=== PATIENT | male | born 1930 | race Hispanic/Latino ===

== ENCOUNTER 2016-08-18 14:54 | Inpatient (IN) | payer MEDICARE, OTHER ==
[2016-08-18] MEDS ORDERED: CARDIZEM ONE (15:14)
[2016-08-18] MEDS ORDERED: CARDIZEM/D5W 100MG/100ML 100 MG/100 ML BAG IV ONE (15:15)
[2016-08-18] MEDS ORDERED: CARDIZEM IV ONE (15:36)
[2016-08-18] MEDS ORDERED: CARDIZEM/D5W 100MG/100ML 100 MG/100 ML BAG IV SCH (16:00)
--- NOTE | 2016-08-18 16:39 | Emergency Department Report ---
HPI - General Chief Complaint: Chest Pain Time Seen by Provider: 08/18/16 16:14 - HPI HPI: This is an 86-year-old male who presents to the emergency department by EMS with some generalized and nonspecific complaints. EMS has listed as a chief complaint of impending doom. The patient complains of a panicking sensation and some palpitations. He denies any significant chest discomfort. The EKGs that were obtained by EMS in route showed A. fib with RVR and some signs of sinus tachycardia with PVCs. The patient was started on a Cardizem drip and arrives getting this medication. Patient's primary care doctor is a Dr. Hurst, he does not have a medical practice administrator. 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 He denies any history of AR, CVA, PE/DVT. The patient also presents as a DO NOT RESUSCITATE. ED Past Medical Hx - Past Medical History Hx Hypertension: Yes Additional medical history: Anxiety - Surgical History Additional Surgical History: Left leg amputee - Social History Smoking Status: Unknown if ever smoked Substance Use Type: None - Medications Home Medications: Home Medications Medication Instructions Recorded Confirmed Last Taken Type Hydrochlorothiazide 12.5 mg PO DAILY 08/18/16 08/18/16 Unknown History ED Review of Systems ROS: Stated complaint: RAPID HEART RATE Other details as noted in HPI Comment: All other systems reviewed and negative Constitutional: denies: chills, fever Eyes: denies: eye pain, eye discharge, vision change ENT: denies: ear pain, throat pain Respiratory: denies: cough, shortness of breath, wheezing Cardiovascular: palpitations. denies: syncope Gastrointestinal: denies: abdominal pain, nausea, diarrhea Genitourinary: denies: urgency, dysuria Musculoskeletal: denies: back pain, joint swelling, arthralgia Skin: denies: rash, lesions Neurological: denies: headache, weakness, paresthesias Psychiatric: anxiety Physical Exam - Physical Exam Vital Signs: Vital Signs 08/18/16 08/18/16 15:30 15:36 Temperature 97.6 F Pulse Rate 94 H 103 H Respiratory 15 Rate Blood Pressure 148/53 O2 Sat by Pulse 99 Oximetry Physical Exam: GENERAL: The patient is well-developed well-nourished. HEENT: Normocephalic. Atraumatic. Extraocular motions are intact. Patient has moist mucous membranes. Pupils equal reactive to light bilaterally. NECK: Supple. Trachea is midline. CHEST/LUNGS: Clear to auscultation. There is no respiratory distress noted. HEART/CARDIOVASCULAR: Heart rate appears regular with a controlled rate. ABDOMEN: Abdomen is soft, nontender. Patient has normal bowel sounds. There is no abdominal distention. SKIN: Skin is warm and dry. NEURO: The patient is awake, alert. The patient is cooperative. The patient has no focal neurologic deficits. The patient has normal speech. Pronator drift. MUSCULOSKELETAL: There is no tenderness or deformity. Chronic left below-knee amputation. There is no evidence of acute injury. ED Course Vital Signs 08/18/16 08/18/16 15:30 15:36 Temperature 97.6 F Pulse Rate 94 H 103 H Respiratory 15 Rate Blood Pressure 148/53 O2 Sat by Pulse 99 Oximetry ED Medical Decision Making - Lab Data Result diagrams: 08/18/16 16:51 08/18/16 16:51 - EKG Data -: EKG Interpreted by Me EKG shows normal: sinus rhythm (with PVCs), axis (right axis deviation), intervals, QRS complexes (nonspecific intraventricular block), ST-T waves Rate: normal - EKG Data When compared to previous EKG there are: previous EKG unavailable Interpretation: other (sinus rhythm with PVCs, rightward axis, rate of 82 bpm, nonspecific interventricular block) - Radiology Data Radiology results: report reviewed, image reviewed interpreted by me: Chest x-ray did not show any acute process. Heart is normal shape and size. No effusions. No pneumothorax. No signs of pneumonia seen. CT angiography of the chest shows consolidation with obstructing endobronchial material or mass within the medial right middle lobe. Nodular density seen within the distal trachea to the right of the midline just above the bifurcation. There is concern for underlying malignancy. Bronchoscopy may be indicated. No evidence of pulmonary embolism. - Medical Decision Making 86-year-old male presents with some sense of impending doom, panic, some palpitations. Patient's labs are mostly unremarkable other than a elevated equivocal d-dimer. For this reason a CT Angio. The chest was done that shows a consolidation in the right middle lobe and a nodular density just above the tracheal bifurcation that altogether appears concerning for tumor and/ or malignancy. Originally patient had EKG through EMS that appear consistent with atrial ablation. Once he was on the Cardizem drip it appeared to go to a sinus tachycardia with PVCs. For these reasons patient will be admitted to the hospital for further evaluation and treatment. He has been accepted for admission by the hospitalist, Dr Moore. - Differential Diagnosis dysrhythmia, AR, malignancy, PE, anxiety Critical Care Time: No Critical care attestation.: If time is entered above; I have spent that time in minutes in the direct care of this critically ill patient, excluding procedure time. ED Disposition Clinical Impression: Mass of lung, Tachyarrhythmia Hypertension Qualifiers: Hypertension type: essential hypertension Qualified Code(s): I10 - Essential ( primary) hypertension Chest pain Qualifiers: Chest pain type: unspecified Qualified Code(s): R07.9 - Chest pain, unspecified Disposition: OP ADMITTED IP TO THIS HOSP Is pt being admited?: Yes Does the pt Need Aspirin: Yes Condition: Stable Time of Disposition: 19:39
--- NOTE | 2016-08-18 17:10 | XRay Report ---
Portable chest: The lungs are hyperlucent and hyperinflated. No pulmonary nodule or infiltrate. The heart is normal in size. No prior study for comparison. Impression: Chronic lung disease. No acute findings suspected.
[2016-08-18 17:15] LABS: Basophils % (Auto) 1.1 % (0.0-1.8); Eosinophils % (Auto) 0.6 % (0.0-4.3); Hematocrit 45.1 % (35.5-45.6); Hemoglobin 14.5 gm/dl (11.8-15.2); Mean Corpuscular HGB Conc 32 % (32-34); Mean Corpuscular Hemoglobin 28 pg (28-32); Mean Corpuscular Volume 87 fl (84-94); Platelet Count 338 K/mm3 (140-440); Red Blood Count 5.22 M/mm3 (3.65-5.03); Red Cell Distribution Width 13.2 % (13.2-15.2); White Blood Count 10.4 K/mm3 (4.5-11.0)
[2016-08-18 17:19] LABS: Bilirubin,Urine NEG (Negative); Blood,Urine NEG (Negative); Ketones,Urine NEG (Negative); Leukocyte Esterase,Urine NEG (Negative); Nitrite,Urine NEG (Negative); Protein,Urine <15 mg/dL mg/dL (Negative); Urobilinogen,Urine < 2.0 mg/dL (<2.0); WBC,Urine < 1.0 /HPF (0.0-6.0)
[2016-08-18 17:25] LABS: INR 1.04 (0.87-1.13)
[2016-08-18 17:26] LABS: Partial Thromboplastin Time 42.4 Sec. (24.2-36.6)
[2016-08-18] MEDS ORDERED: NACL ONE (17:29)
[2016-08-18 17:35] LABS: Alanine Aminotransferase 15 units/L (7-56); Albumin 3.6 g/dL (3.9-5); Albumin/Globulin Ratio 0.9 %; Alkaline Phosphatase 71 units/L (35-129); Anion Gap 21 mmol/L; BUN/Creatinine Ratio 13.33; Bilirubin,Total 0.4 mg/dL (0.1-1.2); Blood Urea Nitrogen 16 mg/dL (9-20); Calcium 9.1 mg/dL (8.4-10.2); Carbon Dioxide 21 mmol/L (22-30); Chloride 98.7 mmol/L (98-107); Creatine Kinase 208 units/L (55-170); Glucose 111 mg/dL (75-100); Potassium 4.3 mmol/L (3.6-5.0); Sodium 136 mmol/L (137-145); Total Protein 7.4 g/dL (6.3-8.2)
--- NOTE | 2016-08-18 18:35 | Admit Criteria Form ---
Admission Criteria Documentation: PULMONARY DISEASE GRG Clinical Indications for Admission to Inpatient Care ( Place 'X' for any and all applicable criteria): Hospital admission is needed for appropriate care of the patient because of ANY ONE of the following(1): [ ]I. Impending or actual respiratory arrest ( Use Respiratory Failure Criteria for severe respiratory disease and long-term mechanical ventilation patients) (4) [ ]II. Severe airflow or ventilation abnormalities (not responsive to emergency and observation care treatment as appropriate) as indicated by ANY ONE of the following(5)(6)(7)(8) : [ ]a) PCO2 > 42 mm Hg (5.6 kPa) and pH < 7.35 (new) [ ]b) Documented PCO2 increase > 5 mm Hg (0.7 kPa) from disease baseline [ ]c) Airflow measurements[A] < 60% of previous best or predicted ( e.g., PEF <300 L/minute) despite intensive emergent treatment[B] [ ]d) Required respiratory treatments that are performable only in acute inpatient setting [ ]III. Severe respiratory findings (not responsive to emergency and observation care treatment as appropriate) including ANY ONE of the following(5)(8)(9): [ ]a) Respiratory distress as indicated by ALL of the following(5)(10): [ ]i) Patient with ANY ONE of the following: [ ]1) Dyspnea (difficulty breathing) [ ]2) Abnormal breathing pattern (eg, chest retractions) [ ]3) Tachypnea [ ]4) Other evidence of difficulty breathing [ ]ii) Evidence of respiratory compromise indicated by ANY ONE of the following: [ ]1) Hypoxemia [ ]2) Altered mental status [ ]3) Other evidence of respiratory compromise (eg, pulmonary edema on chest x-ray) [ ]b) Stridor [ ]c) Gross hemoptysis(11) [ ]d) Acute cyanosis [ ]IV. High-risk pulmonary infection as indicated by ANY ONE of the following( 19)(20)(21)(22): [ ]a) Temperature less than 95 degrees F(35 degrees C) or greater than 103.1 degrees F(39.5 degrees C) [ ]b) Hemodynamic instability that remains after emergency or observation level care (as appropriate) [ ]c) Immunocompromised patient (eg, AIDS, post transplant, neutropenic) [ ]d) History of severe COPD [ ]e) History of severely symptomatic congestive heart failure [ ]f) Other high-risk comorbidity (eg, poorly controlled diabetes, cirrhosis, chronic renal insufficiency) [ ]g) Hypoxemia (new) [ ]h) Outpatient, observation, or recovery facility therapy has failed, is not appropriate, or is not feasible [ ]V. Severe atelectasis or lung collapse(15)(16) [ ]. Tuberculosis requiring inpatient treatment as indicated by ANY ONE of the following(17)(18): [ ]a) New positive acid-fast bacilli sputum smear [ ]b) Positive acid-fast bacilli smear (under current treatment), with ANY ONE of the following: [ ]i) Unexposed household contacts [ ]ii) Infants or immunosuppressed household contacts [ ]iii) Patient unable or unwilling to avoid exposing others [ ]iv) Severe immunocompromised patient (eg, AIDS, post transplant, neutropenic) [ ]VII. Empyema or lung abscess(13)(14) [ ]VIII. Severe pulmonary arterial hypertension or pulmonary vascular disease requiring inpatient care indicated by ANY ONE of the following(24)(25): [ ]a) Initiation or change of vasodilators (IV, subcutaneous, or inhaled) or other vasoactive medications needed [ ]b) IV anticoagulation needed (eg, immediate anticoagulation necessary, alternatives not appropriate) [ ]c) Arterial or pulmonary artery catheter monitoring needed due to infusion or other treatment [ ]IX. Chronic lung disease with severe deterioration (not responsive to emergency and observation care treatment as appropriate) as indicated by ANY ONE of the following (6)(12): [ ]a) SaO2 5% below baseline in patient with chronic hypoxemia [ ]b) New requirement for supplemental oxygen to keep SaO2 at baseline or acceptable level [ ]c) Required supplemental oxygen performable only in acute inpatient setting [ ]d) Severe airflow or ventilation abnormalities [ ]e) Rapid rate of exacerbation onset [ ]f) Previously mobile patient unable to walk between rooms [ ]g) Inability to eat or sleep due to dyspnea [ ]h) Altered mental status [ ]X. Cystic fibrosis with severe deterioration as indicated by ANY ONE of the following(26)(27): [ ]a) Severe exacerbation that does not respond to intensified home therapy [ ]b) Pneumonia [ ]c) Hemoptysis [ ]d) Atelectasis [ ]e) Pneumothorax [ ]f) Respiratory failure [ ]g) Severe exacerbation with patient unable to perform prescribed treatments at home [ ]XI. Severe right heart failure as indicated by ANY ONE of the following(24) (25): [ ]a) Increasing organ failure (eg, liver congestion with significant and worsening or new elevation of transaminases) [ ]b) Anasarca [ ]c) Angina that requires inpatient care (eg, not treatable in emergency or observation level of care) [ ]d) Respiratory distress [ ]e) Syncope [ ]f) SBP < 90 mm Hg (new) [ ]XII. Injury requiring inpatient care (medical) as indicated by ANY ONE of the following(28): [ ]a) Significant inhalation injury (eg, smoke inhalation, other toxic inhalation) (29)(30)(31) [ ]b) Airway obstruction that remains or is unstable after emergency or observation level care(32) [ ]c) Severe pain requiring acute inpatient management [ ]d) Lung contusion [ ]e) Bronchial tree injury [ ]f) Air or fat emboli(33) [ ]g) Other injury not treatable in emergency or observation level care (eg, hemothorax) (34) [ ]XIII. Pulmonary hemorrhage or significant hemoptysis(11)(35)(36) [ ]XIV. Inpatient palliative care needed[C](37)(38)(39)(40) [ ]XV. Complications of lung transplant (eg, rejection, failure, respiratory infection) (23) [X ]XVI. Pulmonary Disease and ANY ONE of the following: [X ]a) General Admission Criteria [ ]b) Pediatric General Admission Criteria The original [facility] content created by [facility] has been revised. The portions of the content which have been revised are identified through the use of italic text or in bold, and [facility] has neither reviewed nor approved the modified material. All other unmodified content is copyright [facility]. Please see references footnoted in the original [facility] edition 2016
--- NOTE | 2016-08-18 18:47 | Cat Scan Report ---
FINAL REPORT EXAM: CT ANGIO CHEST HISTORY: Elevated dimer, Palpitations TECHNIQUE: CT chest CT angiogram with reconstructions PRIORS: None. FINDINGS: There is no evidence of filling defect within the central pulmonary vasculature to suggest the presence of acute pulmonary embolus. No evidence of mediastinal pathologic lymph node enlargement Heart and great vessels are unremarkable. The aorta is normal in caliber. There is focal consolidation within the medial aspect of the right middle lobe. There is dense material within the right middle lobe bronchus Within the distal trachea just above the bifurcation there is a 1.2 centimeter intermediate density focus along the tracheal wall just proximal to the bifurcation Visualized portion of the upper abdomen demonstrates no acute change. IMPRESSION: Consolidation with obstructing endobronchial material or mass within the medial right middle lobe. Nodular density seen within the distal trachea to the right of midline just above the bifurcation. There is concern for underlying malignancy. Bronchoscopy may reflect be required for further evaluation. No CT evidence for acute pulmonary embolus
[2016-08-18] MEDS ORDERED: BABY ASPIRIN PO ONE (19:40)
--- NOTE | 2016-08-18 21:43 | History and Physical Report ---
History of Present Illness Date of examination: 08/18/16 Date of admission: 08/18/16 19:40 Chief complaint: High blood pressure History of present illness: 86-year-old male with past medical history significant for dementia, hypertension presented to the emergency department complaining of elevated blood pressure systolic in the 160. Patient denied any chest pain, shortness of breath, palpitations. In the emergency department EKG was done and and showed A. fib with RVR. The patient was started on Cardizem drip and rhythm was changed to sinus. CT was done and showed right middle lobe mass. Patient was admitted to telemetry for further workup. REVIEW OF SYSTEMS: GENERAL: no weight change, no fatigue, no fever HEAD: no head ache EYES: no blurry vision, no acute visual loss EARS: no hearing loss, no discharge, no earache NOSE: no stuffiness, no sneezing, no discharge MOUTH, THROAT AND NECK: no bleeding gums, no sore throat, no swollen neck CARDIAC: no palpitations, no dyspnea on exertion, no orthopnea, no PND, no edema , no chest pain RESPIRATORY: no shortness of breath, no wheeze, no cough, no sputum, no hemoptysis, no asthma GI: no decreased appetite, no nausea, no vomiting, no dysphagia, no diarrhea, no constipation, no abdominal pain URINARY: no change in frequency, no urgency, no polyuria, no hematuria, no incontinence MUSCULOSKELETAL: no muscle weakness, no pain, no joint stiffness NEUROLOGIC: no loss of sensation/numbness, no tingling, no tremors, no weakness/ paralysis HEMATOLOGIC: no anemia, no easy bruising SKIN: no rashes ENDOCRINE: no heat/cold intolerance, no polyuria, no polydipsia, no thyroid problems, no diabetes PSYCHIATRIC: no anxiety, no depression, no suicidal ideations Past History Past Medical History: hypertension, other (dementia) Past Surgical History: Other (right BKA) Social history: full code. denies: smoking, alcohol abuse, prescription drug abuse, IV drug use Family history: no significant family history Medications and Allergies Allergies Allergy/AdvReac Type Severity Reaction Status Date / Time No Known Allergies Allergy Unverified 08/18/16 15:34 Home Medications Medication Instructions Recorded Confirmed Last Taken Type Hydrochlorothiazide 12.5 mg PO DAILY 08/18/16 08/18/16 Unknown History Active Meds: Active Medications Heparin Sodium (Porcine) (Heparin) 5,000 unit SUB-Q Q12HR RAMO Diltiazem HCl (Cardizem/D5w 100mg/100ml) 100 mg in 100 mls @ 5 mls/hr IV TITR RAMO; 5 MG/HR PRN Reason: Protocol Last Admin: 08/18/16 15:40 Dose: 5 mg/hr, 5 mls/hr Exam - Physical Exam Narrative exam: Not in cardiopulmonary distress. The patient appeared well nourished and normally developed. Vital signs as documented. Head exam is unremarkable. No scleral icterus . Neck is without jugular venous distension, thyromegaly, or carotid bruits. Lungs are clear to auscultation. Cardiac exam reveals regular rate and Rhythm. First and second heart sounds normal. No murmurs, rubs or gallops. Abdominal exam reveals normal bowel sounds, no masses, no organomegaly and no aortic enlargement. Extremities right BKA . 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 No focal weakness. - Constitutional Vitals: Temp Pulse Resp BP Pulse Ox 97.6 F 97 H 11 L 131/64 95 08/18/16 15:30 08/18/16 20:00 08/18/16 20:00 08/18/16 20:00 08/18/16 20:00 Results - Labs CBC & Chem 7: 08/18/16 16:51 08/18/16 16:51 Labs: Laboratory Last Values WBC 10.4 K/mm3 (4.5-11.0) 08/18/16 16:51 RBC 5.22 M/mm3 (3.65-5.03) H 08/18/16 16:51 Hgb 14.5 gm/dl (11.8-15.2) 08/18/16 16:51 Hct 45.1 % (35.5-45.6) 08/18/16 16:51 MCV 87 fl (84-94) 08/18/16 16:51 MCH 28 pg (28-32) 08/18/16 16:51 MCHC 32 % (32-34) 08/18/16 16:51 RDW 13.2 % (13.2-15.2) 08/18/16 16:51 Plt Count 338 K/mm3 (140-440) 08/18/16 16:51 Lymph % (Auto) 7.7 % (13.4-35.0) L 08/18/16 16:51 [place] % (Auto) 7.0 % (0.0-7.3) 08/18/16 16:51 Eos % (Auto) 0.6 % (0.0-4.3) 08/18/16 16:51 Baso % (Auto) 1.1 % (0.0-1.8) 08/18/16 16:51 Lymph # 0.8 K/mm3 (1.2-5.4) L 08/18/16 16:51 [place] # 0.7 K/mm3 (0.0-0.8) 08/18/16 16:51 Eos # 0.1 K/mm3 (0.0-0.4) 08/18/16 16:51 Baso # 0.1 K/mm3 (0.0-0.1) 08/18/16 16:51 Seg Neutrophils % 83.6 % (40.0-70.0) H 08/18/16 16:51 Seg Neutrophils # 8.7 K/mm3 (1.8-7.7) H 08/18/16 16:51 PT 13.5 Sec. (12.2-14.9) 08/18/16 16:51 INR 1.04 (0.87-1.13) 08/18/16 16:51 APTT 42.4 Sec. (24.2-36.6) H 08/18/16 16:51 D-Dimer 590.34 ng/mlDDU (0-234) H 08/18/16 16:51 Sodium 136 mmol/L (137-145) L 08/18/16 16:51 Potassium 4.3 mmol/L (3.6-5.0) 08/18/16 16:51 Chloride 98.7 mmol/L (98-107) 08/18/16 16:51 Carbon Dioxide 21 mmol/L (22-30) L 08/18/16 16:51 Anion Gap 21 mmol/L 08/18/16 16:51 BUN 16 mg/dL (9-20) 08/18/16 16:51 Creatinine 1.2 mg/dL (0.8-1.5) 08/18/16 16:51 Estimated GFR 57 ml/min 08/18/16 16:51 BUN/Creatinine Ratio 13.33 % 08/18/16 16:51 Glucose 111 mg/dL (75-100) H 08/18/16 16:51 Calcium 9.1 mg/dL (8.4-10.2) 08/18/16 16:51 Total Bilirubin 0.4 mg/dL (0.1-1.2) 08/18/16 16:51 AST 21 units/L (5-40) 08/18/16 16:51 ALT 15 units/L (7-56) 08/18/16 16:51 Alkaline Phosphatase 71 units/L (35-129) 08/18/16 16:51 Total Creatine Kinase 208 units/L (55-170) H 08/18/16 16:51 CK-MB (CK-2) 8.0 ng/mL (0.0-4.0) H 08/18/16 16:51 CK-MB (CK-2) Rel Index 3.8 (0-4) 08/18/16 16:51 Troponin T < 0.010 ng/mL (0.00-0.029) 08/18/16 16:51 Total Protein 7.4 g/dL (6.3-8.2) 08/18/16 16:51 Albumin 3.6 g/dL (3.9-5) L 08/18/16 16:51 Albumin/Globulin Ratio 0.9 % 08/18/16 16:51 TSH 1.450 mlU/mL (0.270-4.200) 08/18/16 16:51 Urine Color Straw (Yellow) 08/18/16 16:56 Urine Turbidity Clear (Clear) 08/18/16 16:56 Urine pH 7.0 (5.0-7.0) 08/18/16 16:56 Ur Specific [place] 1.005 (1.003-1.030) 08/18/16 16:56 Urine Protein <15 mg/dl mg/dL (Negative) 08/18/16 16:56 Urine Glucose (UA) Neg mg/dL (Negative) 08/18/16 16:56 Urine Ketones Neg mg/dL (Negative) 08/18/16 16:56 Urine Blood Neg (Negative) 08/18/16 16:56 Urine Nitrite Neg (Negative) 08/18/16 16:56 Urine Bilirubin Neg (Negative) 08/18/16 16:56 Urine Urobilinogen < 2.0 mg/dL (<2.0) 08/18/16 16:56 Ur Leukocyte Esterase Neg (Negative) 08/18/16 16:56 Urine WBC (Auto) < 1.0 /HPF (0.0-6.0) 08/18/16 16:56 Urine RBC (Auto) 1.0 /HPF (0.0-6.0) 08/18/16 16:56 - Imaging and Cardiology EKG: image reviewed (A. fib with RVR) CT scan - chest: report reviewed (right middle lobe mass) Assessment and Plan Assessment and plan: A. fib with RVR Right mid lobe mass Hypertension - Patient was on Cardizem drip - Converted to sinus rhythm - put on by mouth metoprolol - Echocardiogram - Restart his home medications - Pulmonary consult placed for evaluation of lung mass DVT prophylaxis - Lovenox Disposition - Admit to telemetry floor
[2016-08-18] MEDS: HEPARIN SUB-Q SCH (22:36)
[2016-08-18] MEDS: LOPRESSOR PO SCH (22:36)
--- NOTE | 2016-08-19 09:31 | Progress Note ---
Assessment and Plan Assessment and plan: --A. fib with rapid ventricular rate Off Cardizem drip now, closely monitor Cardiology evaluation if needed Discussed with the patient the need for chronic anticoagulation Patient refused, DO NOT RESUSCITATE status, will add aspirin --Possible right lung mass, pulmonary consultation requested Closely monitor, patient does not want any workup aggressive management will Advise follow-up with pulmonary if he wants further evaluation --Hypertension, well controlled Continue current antihypertensives and when necessary medications --Status post left BKA Supportive care --DVT prophylaxis with Lovenox --CODE STATUS; DO NOT RESUSCITATE --DC planning per case management Patient lives alone, recommend rehabilitation versus placement Patient refused and wanted to be discharged home Condition treatment plan discussed in detail with the patient History Interval history: Patient seen and evaluated in his room medical records reviewed Patient feels slightly better no new complaints Admitted with A. fib with rapid ventricular rate on Cardizem drip, which was discontinued in view of bradycardia Patient feels better denies any chest pain shortness of breath Awaiting pulmonary consult for possible lung mass Hospitalist Physical - Constitutional Vitals: Temp Pulse Resp BP Pulse Ox 97.8 F 76 18 123/59 95 08/19/16 08:24 08/19/16 08:24 08/19/16 08:24 08/19/16 08:24 08/19/16 08:24 General appearance: Present: no acute distress, well-nourished - EENT Eyes: Present: PERRL, EOM intact - Neck Neck: Present: supple, normal ROM - Respiratory Respiratory effort: normal Respiratory: bilateral: diminished, rhonchi (occasional), negative: rales, wheezing - Cardiovascular Rhythm: regular Heart Sounds: Present: S1 & S2 - Extremities Extremities: no ischemia, pulses intact, pulses symmetrical, abnormal (left below-knee amputation) - Abdominal General gastrointestinal: soft, non-tender, non-distended, normal bowel sounds - Integumentary Integumentary: Present: clear, warm - Psychiatric Psychiatric: appropriate mood/affect, cooperative - Neurologic Neurologic: CNII-XII intact, moves all extremities Results - Labs CBC & Chem 7: 08/18/16 16:51 08/18/16 16:51 Labs: Laboratory Last Values WBC 10.4 K/mm3 (4.5-11.0) 08/18/16 16:51 RBC 5.22 M/mm3 (3.65-5.03) H 08/18/16 16:51 Hgb 14.5 gm/dl (11.8-15.2) 08/18/16 16:51 Hct 45.1 % (35.5-45.6) 08/18/16 16:51 MCV 87 fl (84-94) 08/18/16 16:51 MCH 28 pg (28-32) 08/18/16 16:51 MCHC 32 % (32-34) 08/18/16 16:51 RDW 13.2 % (13.2-15.2) 08/18/16 16:51 Plt Count 338 K/mm3 (140-440) 08/18/16 16:51 Lymph % (Auto) 7.7 % (13.4-35.0) L 08/18/16 16:51 [place] % (Auto) 7.0 % (0.0-7.3) 08/18/16 16:51 Eos % (Auto) 0.6 % (0.0-4.3) 08/18/16 16:51 Baso % (Auto) 1.1 % (0.0-1.8) 08/18/16 16:51 Lymph # 0.8 K/mm3 (1.2-5.4) L 08/18/16 16:51 [place] # 0.7 K/mm3 (0.0-0.8) 08/18/16 16:51 Eos # 0.1 K/mm3 (0.0-0.4) 08/18/16 16:51 Baso # 0.1 K/mm3 (0.0-0.1) 08/18/16 16:51 Seg Neutrophils % 83.6 % (40.0-70.0) H 08/18/16 16:51 Seg Neutrophils # 8.7 K/mm3 (1.8-7.7) H 08/18/16 16:51 PT 13.5 Sec. (12.2-14.9) 08/18/16 16:51 INR 1.04 (0.87-1.13) 08/18/16 16:51 APTT 42.4 Sec. (24.2-36.6) H 08/18/16 16:51 D-Dimer 590.34 ng/mlDDU (0-234) H 08/18/16 16:51 Sodium 136 mmol/L (137-145) L 08/18/16 16:51 Potassium 4.3 mmol/L (3.6-5.0) 08/18/16 16:51 Chloride 98.7 mmol/L (98-107) 08/18/16 16:51 Carbon Dioxide 21 mmol/L (22-30) L 08/18/16 16:51 Anion Gap 21 mmol/L 08/18/16 16:51 BUN 16 mg/dL (9-20) 08/18/16 16:51 Creatinine 1.2 mg/dL (0.8-1.5) 08/18/16 16:51 Estimated GFR 57 ml/min 08/18/16 16:51 BUN/Creatinine Ratio 13.33 % 08/18/16 16:51 Glucose 111 mg/dL (75-100) H 08/18/16 16:51 Calcium 9.1 mg/dL (8.4-10.2) 08/18/16 16:51 Total Bilirubin 0.4 mg/dL (0.1-1.2) 08/18/16 16:51 AST 21 units/L (5-40) 08/18/16 16:51 ALT 15 units/L (7-56) 08/18/16 16:51 Alkaline Phosphatase 71 units/L (35-129) 08/18/16 16:51 Total Creatine Kinase 208 units/L (55-170) H 08/18/16 16:51 CK-MB (CK-2) 8.0 ng/mL (0.0-4.0) H 08/18/16 16:51 CK-MB (CK-2) Rel Index 3.8 (0-4) 08/18/16 16:51 Troponin T < 0.010 ng/mL (0.00-0.029) 08/18/16 16:51 Total Protein 7.4 g/dL (6.3-8.2) 08/18/16 16:51 Albumin 3.6 g/dL (3.9-5) L 08/18/16 16:51 Albumin/Globulin Ratio 0.9 % 08/18/16 16:51 TSH 1.450 mlU/mL (0.270-4.200) 08/18/16 16:51 Urine Color Straw (Yellow) 08/18/16 16:56 Urine Turbidity Clear (Clear) 08/18/16 16:56 Urine pH 7.0 (5.0-7.0) 08/18/16 16:56 Ur Specific [place] 1.005 (1.003-1.030) 08/18/16 16:56 Urine Protein <15 mg/dl mg/dL (Negative) 08/18/16 16:56 Urine Glucose (UA) Neg mg/dL (Negative) 08/18/16 16:56 Urine Ketones Neg mg/dL (Negative) 08/18/16 16:56 Urine Blood Neg (Negative) 08/18/16 16:56 Urine Nitrite Neg (Negative) 08/18/16 16:56 Urine Bilirubin Neg (Negative) 08/18/16 16:56 Urine Urobilinogen < 2.0 mg/dL (<2.0) 08/18/16 16:56 Ur Leukocyte Esterase Neg (Negative) 08/18/16 16:56 Urine WBC (Auto) < 1.0 /HPF (0.0-6.0) 08/18/16 16:56 Urine RBC (Auto) 1.0 /HPF (0.0-6.0) 08/18/16 16:56
[2016-08-19] MEDS ORDERED: NON-FORMULARY (Hydrochlorothiazide 12.5 MG) PO SCH (10:00)
[2016-08-19] MEDS: HCTZ PO SCH (10:36)
[2016-08-19] MEDS: HEPARIN SUB-Q SCH ×2 (10:37→21:47)
[2016-08-19] MEDS: LOPRESSOR PO SCH ×2 (10:38→21:47)
[2016-08-19] MEDS: CARDIZEM PO SCH ×3 (11:35→23:57)
--- NOTE | 2016-08-19 17:08 | Consultation ---
History of Present Illness Consult date: 08/19/16 Requesting physician: DESIREE PONCE Reason for consult: lung mass History of present illness: 86 yo presents with Afib/RVR, HTN. Denies SOB, chest pain, cough, sputum, weight loss, appetite changes, hemoptysis. Active Medications Diltiazem HCl (Cardizem) 30 mg PO Q6HR [facility] Last Admin: 08/19/16 17:03 Dose: 30 mg Heparin Sodium (Porcine) (Heparin) 5,000 unit SUB-Q Q12HR [facility] Last Admin: 08/19/16 10:37 Dose: 5,000 unit Hydrochlorothiazide (Hctz) 12.5 mg PO QDAY [facility] Last Admin: 08/19/16 10:36 Dose: 12.5 mg Metoprolol Tartrate (Lopressor) 25 mg PO BID [facility] Last Admin: 08/19/16 10:38 Dose: 25 mg Past History Past Medical History: hypertension, other (dementia) Past Surgical History: Other (right BKA) Social history: smoking (quit remotely), full code. denies: alcohol abuse, prescription drug abuse, IV drug use Family history: no significant family history Medications and Allergies Allergies Allergy/AdvReac Type Severity Reaction Status Date / Time No Known Allergies Allergy Unverified 08/18/16 15:34 Home Medications Medication Instructions Recorded Confirmed Last Taken Type Hydrochlorothiazide 12.5 mg PO DAILY 08/18/16 08/18/16 Unknown History Active Meds: Active Medications Diltiazem HCl (Cardizem) 30 mg PO Q6HR [facility] Last Admin: 08/19/16 17:03 Dose: 30 mg Heparin Sodium (Porcine) (Heparin) 5,000 unit SUB-Q Q12HR [facility] Last Admin: 08/19/16 10:37 Dose: 5,000 unit Hydrochlorothiazide (Hctz) 12.5 mg PO QDAY [facility] Last Admin: 08/19/16 10:36 Dose: 12.5 mg Metoprolol Tartrate (Lopressor) 25 mg PO BID [facility] Last Admin: 08/19/16 10:38 Dose: 25 mg Review of Systems All systems: negative (neg x 10 except as per HPI) Physical Examination Vital signs: Vital Signs Temp Pulse Resp BP Pulse Ox 97.6 F 94 H 15 148/53 99 08/18/16 15:30 08/18/16 15:30 08/18/16 15:30 08/18/16 15:30 08/18/16 15:30 General appearance: no acute distress, alert Eyes: non-icteric ENT: oropharynx moist Neck: supple Effort: normal Ascultation: Bilateral: clear Cardiovascular: irregular rhythm (no mrg) Gastrointestinal: normoactive bowel sounds, soft, non-tender, non-distended Integumentary: normal Extremities: no cyanosis, no edema, pink and warm, other (s/p L BKA) Musculoskeletal: no deformities normal mental status, non-focal exam, pupils equal and round, CN II-XII normal mood appropriate, affect normal Results - Laboratory Findings CBC and BMP: 08/18/16 16:51 08/18/16 16:51 PT/INR, D-dimer PT 13.5 Sec. (12.2-14.9) 08/18/16 16:51 INR 1.04 (0.87-1.13) 08/18/16 16:51 D-Dimer 590.34 ng/mlDDU (0-234) H 08/18/16 16:51 - Diagnostic Findings Chest x-ray: report reviewed, image reviewed CT scan - chest: report reviewed, image reviewed Assessment and Plan Imp: 1. 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 Centrilobular emphysema 3. Afib w/ RVR 4. Cachexia 5. Dementia 6. Uncontrolled HTN Rec: 1. F/u Echo 2. D/w him re: RML mass seen on CT chest; bronchoscopy recommended as there appears to be endobronchial tumor; he wants to think about it; will f/u on 3. Afib/HTN as per primary 4. Consider outpatient PFTs Plan of care reviewed w/ patient, he understands/agrees Thanks for the consult. Will follow closely.
[2016-08-20] MEDS: CARDIZEM PO SCH (05:39)
[2016-08-20 07:59] VITALS: BP 135/61
[2016-08-20] MEDS: LOPRESSOR PO SCH (09:25)
--- NOTE | 2016-08-20 09:25 | Discharge Summary ---
Providers - Providers Date of Admission: 08/18/16 19:40 Date of discharge: 08/20/16 Attending physician: DESIREE PONCE MD 08/18/16 21:44 Consult to Physician [CONS] Routine Consulting Provider: TY FRAZIER Reason For Exam: right middle lobe mass Place consult to:: pulmonary Notified:: Beatriz WALKER Phone number called:: [phone] Was contact made?: Yes If yes, spoke with:: [facility] Time called:: 08:40 Primary care physician: DERRICK BUILDER Hospitalization Condition: Stable Disposition: DISCHARGED TO HOME OR SELFCARE Core Measure Documentation - Palliative Care Palliative Care/ Comfort Measures: Not Applicable - Core Measures Any of the following diagnoses?: none Exam - Constitutional Vitals: Temp Pulse Resp BP Pulse Ox 97.9 F 72 20 135/61 95 08/20/16 07:59 08/20/16 07:59 08/20/16 07:59 08/20/16 07:59 08/20/16 07:59 General appearance: Present: no acute distress, well-nourished - EENT Eyes: Present: PERRL, EOM intact - Neck Neck: Present: supple, normal ROM - Respiratory Respiratory effort: normal Respiratory: negative: rales, rhonchi, wheezing - Cardiovascular Rhythm: regular Heart Sounds: Present: S1 & S2 - Extremities Extremities: no ischemia, pulses intact, pulses symmetrical, abnormal (left BKA) Peripheral Pulses: within normal limits - Abdominal General gastrointestinal: Present: soft, non-tender, non-distended, normal bowel sounds - Integumentary Integumentary: Present: clear, warm - Musculoskeletal Musculoskeletal: strength equal bilaterally - Psychiatric Psychiatric: appropriate mood/affect, cooperative - Neurologic Neurologic: CNII-XII intact, moves all extremities Plan Activity: no restrictions Diet: low salt Additional Instructions: If you have chest pain or palpitations, contact M.D. or go to emergency room Follow up with: JOSE DEAL MD [Primary Care Provider] - 3-5 Days NEGRA KELLEY MD [Staff Physician] - 7 Days Prescriptions: Metoprolol [Lopressor TAB] 25 mg PO BID #60 tablet
[2016-08-20] MEDS: HCTZ PO SCH (09:26)
[2016-08-20] MEDS: HEPARIN SUB-Q SCH (09:28)
[2016-08-20] MEDS ORDERED: ASPIRIN PO SCH (10:00)
--- NOTE | 2016-08-25 11:14 | Query- Nutrition ---
Waldo Buenrostro____Lien Date: 08/25/16 Thermoforming Operator/CDS:____Mikal / Theresa Phone#:____[phone] Exercise your independent professional judgment when responding to query. Questions asked do not imply a particular answer is desired or expected. We greatly appreciate your clarification on this issue. Clinical Documentation States: 86 year old male was admitted on 08/18/16. The pulmonology consult note states " Assessment and Plan: Cachexia " Clinical Findings Show: BMI: 18.7 Lymphocytes: 0.8 Albumin: 3.6 Please select the most appropriate option 3 [] Mild Malnutrition [] Mild - Moderate Malnutrition [] Moderate - Severe Malnutrition [] Severe Malnutrition Serum Albumin 2.8 to 3.4 g/dl or Pre-albumin 5 to 17 mg/dl1,2 Inadequate nutritional intake1,2,3,4 NPO > 5 days Weight loss: 5% in 1 month or 7.5% in 3 months or 10% in 6 months1, 3,4 BMI 16 to 18.4 or Weight <90% of ideal body weight1,2,3,4 Serum Albumin < 2.8 g/ dl1,2 Lymphocytes < 1500/ L2 Inadequate nutritional intake3, high stress e.g. major trauma, sepsis,pancreatitis, boss etc. Decubitus ulcers1,2, , skin breakdown2, easy hair pluckability2 Weight <80% standard for height2 Triceps skin fold <3 mm2 Mid-arm muscle circumference <15 cm2 Creatinine-height index <60% standard2 [ ] Cachexia [ ] Emaciated w/Malnutrition [x ] Other:__Due to underlying illness [ ] Unable to determine [ ] Comment/Explanation: Present on Admission: [x ] Yes (Y) [ ] Clinically undeterminable (W) [ ] No (N) Please also document response in your Progress Notes and/or Discharge Summary and indicate if the condition was present on admission. MTDD
== END 2016-08-20 13:16 | disposition home or self-care (01) | DRG 309 ==
LOC: ED 14:54 → 4A 19:40
PROVIDERS: ADMIT Internal Medicine; ATTEND Internal Medicine
DX: I48.91 Unspecified atrial fibrillation (principal); R64 Cachexia; Z68.1 Body mass index [BMI] 19.9 or less, adult; R91.8 Other nonspecific abnormal finding of lung field; I10 Essential (primary) hypertension; F41.9 Anxiety disorder, unspecified; F17.200 Nicotine dependence, unspecified, uncomplicated; J43.2 Centrilobular emphysema; Z60.2 Problems related to living alone; Z89.511 Acquired absence of right leg below knee
CPT/HCPCS: 36415; 71010; 71275; 80053; 81001; 82550; 82553; 84443; 84484; 85025; 85379; 85610; 85730; 93005; 93010; 96374; 96376; J1644; Q9967